=== PATIENT | female | born 1945 | race Caucasian/White ===

== ENCOUNTER 2021-02-11 16:09 | Emergency (ER) | payer MEDICARE, OTHER ==
[~2021-02-11] VITALS: Ht 152.4 cm; Wt 108.9 kg
[2021-02-11 16:10] VITALS: BP 118/71
--- NOTE | 2021-02-11 16:10 | NUR ---
VERONICA ALS TO ER BED 4
--- NOTE | 2021-02-11 16:19 | NUR ---
75 Y/O FEMALE C/O EPIGASTRIC PAIN 10/17 DESCRIBES ACHING NON-RADIATING WITH VAGINAL AND RECTAL BLEED [id number]. PT WAS SEEN FOR SIMILAR SYMPTOMS EARLIER TODAY. BLOOD SUGAR 175. ABDOMEN IS LARGE, NON-TENDER TO PALPATION, BOWEL SOUNDS ACTIVE X4. PMH: CABG, DM, HTN, GI NKA
--- NOTE | 2021-02-11 16:22 | NUR ---
DR. ONEAL AT PT BEDSIDE FOR FURTHER EVALUATION.
--- NOTE | 2021-02-11 16:36 | NUR ---
DR. ONEAL AT PT BEDSIDE FOR IV INSERTION VIA US WITH MARTINEZ DORADO.
[2021-02-11] MEDS ORDERED: PAX10 PO (16:56)
[2021-02-11] MEDS ORDERED: FURO-570 PO (16:56)
[2021-02-11] MEDS ORDERED: OMEP40EC23 PO (16:56)
[2021-02-11] MEDS ORDERED: APIX2.5 PO (16:56)
[2021-02-11] MEDS ORDERED: METF-349 PO (16:56)
[2021-02-11] MEDS ORDERED: METROPOLOL PO (16:56)
[2021-02-11] MEDS ORDERED: NITR0.4T2 SL (16:57)
--- NOTE | 2021-02-11 17:05 | NUR ---
LABS COLLECTED BY DR. ONEAL WALKED TO LAB GAVE TO [employer].
--- NOTE | 2021-02-11 17:05 | NUR ---
PT TAKEN TO CT VIA RSRUTHI.
[2021-02-11 17:12] LABS: BASOPHILS # (AUTO) 0.2 K/uL (0.00-0.22); BASOPHILS % (AUTO) 3.4 % (0.0-2.0); EOSINOPHILS # (AUTO) 0.1 K/uL (0-0.4); EOSINOPHILS % (AUTO) 0.7 % (0.0-4.0); HEMATOCRIT 29.6 % (36-48); HEMOGLOBIN 9.5 g/dL (12.0-16.0); LYMPHOCYTES # (AUTO) 0.9 K/uL (2.5-16.5); LYMPHOCYTES % (AUTO) 12.8 % (20.5-51.1); MEAN CORPUSCULAR HEMOGLOBIN 24 pg (27-31); MEAN CORPUSCULAR HGB CONC 32 g/dL (33-37); MEAN CORPUSCULAR VOLUME 74.4 fL (80-94); MONOCYTES # (AUTO) 0.7 K/uL (0.8-1.0); MONOCYTES % (AUTO) 10.1 % (1.7-9.3); NEUTROPHILS # (AUTO) 5.3 K/uL (1.8-7.7); PLATELET COUNT (AUTO) 552 K/uL (140-450); RED BLOOD CELL COUNT(AUTO) 3.98 MIL/uL (4.20-5.40); RED CELL DISTRIBUTION WIDTH 16.6 % (11.6-13.7); WHITE BLOOD COUNT (AUTO) 7.3 K/uL (4.8-10.8)
--- NOTE | 2021-02-11 17:21 | NUR ---
PT TAKEN TO ER BED 4 VIA AYESHARSRUTHI.
--- NOTE | 2021-02-11 17:22 | NUR ---
PT STATES SHE IS UNABLE TO PROVIDE UA SAMPLE AT THIS TIME, MADE AWARE.
[2021-02-11 17:27] LABS: ALBUMIN 2.5 g/dL (3.4-5.0); ANION GAP 14.4 (8-16); ASPARTATE AMINOTRANSFERASE 32 U/L (15-37); CARBON DIOXIDE 25.2 mmol/L (21-32); CHLORIDE 105 mmol/L (98-107); CREATININE 1.7 mg/dL (0.6-1.3); GLUCOSE 120 mg/dL (74-106); LIPASE 54 U/L (73-393); POTASSIUM 4.6 mmol/L (3.5-5.1); SODIUM SERUM 140 mmol/L (136-145); TOTAL BILIRUBIN 0.4 mg/dL (0.0-1.0); UREA NITROGEN, BLOOD 18 mg/dL (7-18)
--- NOTE | 2021-02-11 17:46 | NUR ---
CHEMICAL LABORATORY ASSISTANT AT PT BEDSIDE.
[2021-02-11 18:17] VITALS: BP 126/89
--- NOTE | 2021-02-11 18:17 | NUR ---
PT RESTING, EYES CLOSED, VISIBLE EQUAL RISE AND FALL OF CHEST, VSS, WILL CONTINUE TO MONITOR.
[2021-02-11 18:25] LABS: PROTHROMBIN TIME 10.9 secs (10.8-13.4)
--- NOTE | 2021-02-11 19:09 | NUR ---
Female Sack Keeper accompanied female patient for Pelvic Exam.
--- NOTE | 2021-02-11 19:31 | NUR ---
GAVE REPORT TO ELMER TURCIOS. TRANSFER OF CARE AT THIS TIME.
[2021-02-11] MEDS ORDERED: KETOROLAC 30 MG/ML VIAL IVP ONE (19:35)
[2021-02-11] MEDS ORDERED: NAPR-54 PO (21:47)
--- NOTE | 2021-02-11 21:50 | NUR ---
STRAIGHT CATHED FOR UA
--- NOTE | 2021-02-11 22:34 | NUR ---
Patient discharged with v/s stable. Written and verbal after care instructions given and explained. Patient alert, oriented and verbalized understanding of instructions. Wheel Chair Assisted with to car. All questions addressed prior to discharge. ID band removed. Patient advised to follow up with PMD. Rx of NAPROSYN given. Patient educated on indication of medication including possible reaction and side effects. Opportunity to ask questions provided and answered.
== END 2021-02-11 22:34 | disposition home or self-care (01) ==
LOC: MED 16:09
DX: N95.0 Postmenopausal bleeding (principal); R10.2 Pelvic and perineal pain; I51.9 Heart disease, unspecified
CPT/HCPCS: 36415; 74176; 76856; 80053; 83690; 85025; 85610; 85730; 86886; 86900; 86901; 93005; 93976; 99285; Q0092

== ENCOUNTER 2021-03-22 12:31 | Inpatient (IN) | payer OTHER, MEDICARE, SELFPAY ==
[~2021-03-22] VITALS: Ht 152.4 cm; Wt 118.4 kg
[~2021-03-22 12:31] MED LIST: APIX2.5 PO; FURO-570 PO; METF-349 PO; METROPOLOL PO; NAPR-54 PO; NITR0.4T2 SL; OMEP40EC23 PO; PAX10 PO
[2021-03-22 12:40] VITALS: BP 108/43
[2021-03-22 14:13] LABS: BASOPHILS # (AUTO) 0.1 K/uL (0.00-0.22); BASOPHILS % (AUTO) 0.7 % (0.0-2.0); EOSINOPHILS % (AUTO) 0.6 % (0.0-4.0); HEMATOCRIT 31.9 % (36-48); HEMOGLOBIN 9.9 g/dL (12.0-16.0); LYMPHOCYTES # (AUTO) 0.7 K/uL (2.5-16.5); LYMPHOCYTES % (AUTO) 9.9 % (20.5-51.1); MEAN CORPUSCULAR HEMOGLOBIN 23 pg (27-31); MEAN CORPUSCULAR HGB CONC 31 g/dL (33-37); MEAN CORPUSCULAR VOLUME 74.5 fL (80-94); MONOCYTES # (AUTO) 0.5 K/uL (0.8-1.0); MONOCYTES % (AUTO) 7.4 % (1.7-9.3); NEUTROPHILS % (AUTO) 81.4 % (42.2-75.2); PLATELET COUNT (AUTO) 492 K/uL (140-450); RED BLOOD CELL COUNT(AUTO) 4.29 MIL/uL (4.20-5.40); RED CELL DISTRIBUTION WIDTH 19.9 % (11.6-13.7); WHITE BLOOD COUNT (AUTO) 7.4 K/uL (4.8-10.8)
[2021-03-22 14:49] LABS: ALBUMIN 2.4 g/dL (3.4-5.0); ANION GAP 15.7 (8-16); ASPARTATE AMINOTRANSFERASE 42 U/L (15-37); CARBON DIOXIDE 22.3 mmol/L (21-32); CHLORIDE 107 mmol/L (98-107); GLUCOSE 112 mg/dL (74-106); LIPASE 54 U/L (73-393); SODIUM SERUM 140 mmol/L (136-145); TOTAL BILIRUBIN 0.6 mg/dL (0.0-1.0); UREA NITROGEN, BLOOD 21 mg/dL (7-18)
[2021-03-22 14:56] LABS: PROTHROMBIN TIME 11.2 secs (10.8-13.4)
[2021-03-22] MEDS ORDERED: MORPHINE SULFATE 4 MG/ML SYR IVP ONE ×2 (15:40→15:55)
[2021-03-22] MEDS ORDERED: FUROSEMIDE 100 MG/10 ML VIAL IVP ONE (15:55)
[2021-03-22] MEDS ORDERED: METF-430 PO (16:29)
[2021-03-22] MEDS ORDERED: FERR325E14 PO (16:29)
[2021-03-22] MEDS ORDERED: DOXY-690 PO (16:29)
[2021-03-22] MEDS ORDERED: FURO-570 PO (16:29)
[2021-03-22] MEDS ORDERED: LOSA100T1 PO (16:29)
[2021-03-22] MEDS ORDERED: DOCU-299 PO (16:29)
[2021-03-22] MEDS ORDERED: METO25TA PO (16:29)
[2021-03-22] MEDS ORDERED: ATOR40TA PO (16:29)
[2021-03-22] MEDS ORDERED: METOPROLOL 25 MG TAB PO ONE (17:10)
[2021-03-22 19:55] LABS: APPEARANCE,URINE CLEAR (CLEAR); BILIRUBIN,URINE NEGATIVE (NEGATIVE); BLOOD, URINE 3+ (NEGATIVE); COLOR,URINE YELLOW (YELLOW); LEUKOCYTE ESTERASE ,URINE 2+ (NEGATIVE); NITRITE, URINE NEGATIVE (NEGATIVE); PH,URINE 5.5 (5.0-9.0); UGLUCOSE NEGATIVE (NEGATIVE)
[2021-03-22 20:09] LABS: RBC,URINE TOO NUMEROUS TO COUN /HPF (0-5); WBC,URINE 60-80 /HPF (0-5)
[2021-03-22 21:30] VITALS: BP 130/84
[2021-03-22] MEDS ORDERED: MORPHINE SULFATE 2 MG/ML SYR IVP PRN ×2 (23:10→23:30)
[2021-03-22] MEDS ORDERED: HYDROcodone/APAP 7.5/325 MG 1 TAB PO PRN (23:30)
[2021-03-22] MEDS ORDERED: ONDANSETRON 4 MG/2 ML VIAL IM/IVP PRN (23:30)
[2021-03-22] MEDS ORDERED: ACETAMINOPHEN 325 MG TAB PO PRN (23:30)
[2021-03-22] MEDS ORDERED: DOCUSATE SODIUM 100 MG GELCAP PO PRN (23:30)
[2021-03-22] MEDS ORDERED: ZOLPIDEM 5 MG TAB PO PRN (23:30)
[2021-03-22] MEDS ORDERED: POTASSIUM CHLORIDE 10 MEQ TABER PO PRN (23:30)
[2021-03-22] MEDS ORDERED: guaiFENesin DM 200/20 MG-10 ML 10 ML UDC PO PRN (23:30)
[2021-03-22] MEDS ORDERED: ALBUTEROL SULFATE/IPRATROPIU 3 ML SOL IH PRN (23:55)
[2021-03-22] MEDS ORDERED: cefTRIAXone 1,000 MG VIAL ONE (23:57)
[2021-03-23] VITALS: BP 134/87
[2021-03-23 00:06] LABS: BARBITURATE, URINE NEGATIVE ng/ml (NEG <=200); BENZODIAZEPINE, URINE NEGATIVE ng/mL (NEG <=200); CANNABINOID, URINE NEGATIVE ng/mL (NEG <=50); COCAINE, URINE NEGATIVE ng/mL (NEG <=300); PHENCYCLIDINE SCREEN,URINE NEGATIVE ng/mL (NEG <=25)
[2021-03-23 00:07] LABS: OPIATE, URINE POSITIVE ng/mL (NEG <=2000)
[2021-03-23 00:11] LABS: CHOL/HDL RATIO 3.5 (1-4.5); FREE T4 (FREE THYROXINE) 1.28 ng/dL (0.76-1.46); PHOSPHORUS 3.1 mg/dL (2.5-4.9); THYROID STIMULATING HORMONE 4.84 uIU/mL (0.34-3.74)
[2021-03-23] MEDS: NACL 0.9% 1,000 ML IV SCH ×2 (00:15→22:25)
[2021-03-23 04:00] VITALS: BP 98/50
[2021-03-23 06:36] LABS: BASOPHILS % (AUTO) 0.7 % (0.0-2.0); EOSINOPHILS # (AUTO) 0.2 K/uL (0-0.4); EOSINOPHILS % (AUTO) 2.6 % (0.0-4.0); HEMATOCRIT 27.1 % (36-48); HEMOGLOBIN 8.7 g/dL (12.0-16.0); LYMPHOCYTES # (AUTO) 1.5 K/uL (2.5-16.5); LYMPHOCYTES % (AUTO) 23.2 % (20.5-51.1); MEAN CORPUSCULAR HEMOGLOBIN 24 pg (27-31); MEAN CORPUSCULAR HGB CONC 32 g/dL (33-37); MEAN CORPUSCULAR VOLUME 73.5 fL (80-94); MONOCYTES # (AUTO) 0.7 K/uL (0.8-1.0); MONOCYTES % (AUTO) 10.8 % (1.7-9.3); NEUTROPHILS # (AUTO) 4.1 K/uL (1.8-7.7); NEUTROPHILS % (AUTO) 62.7 % (42.2-75.2); PLATELET COUNT (AUTO) 435 K/uL (140-450); RED CELL DISTRIBUTION WIDTH 19.3 % (11.6-13.7); WHITE BLOOD COUNT (AUTO) 6.5 K/uL (4.8-10.8)
[2021-03-23 07:31] LABS: ANION GAP 10.7 (8-16); CARBON DIOXIDE 20.8 mmol/L (21-32); CHLORIDE 112 mmol/L (98-107); CREATININE 1.9 mg/dL (0.6-1.3); GLUCOSE 102 mg/dL (74-106); POTASSIUM 4.5 mmol/L (3.5-5.1); SODIUM SERUM 139 mmol/L (136-145); UREA NITROGEN, BLOOD 22 mg/dL (7-18)
[2021-03-23 08:00] VITALS: BP 114/70
[2021-03-23] MEDS: ALBUTEROL SULFATE/IPRATROPIU 3 ML SOL IH SCH ×3 (08:03→19:48)
[2021-03-23] MEDS: PARoxetine 10 MG TAB PO SCH (08:59)
[2021-03-23] MEDS ORDERED: LOSARTAN 50 MG TAB PO SCH (09:00)
[2021-03-23] MEDS ORDERED: FUROSEMIDE 40 MG TAB PO SCH (09:00)
[2021-03-23] MEDS: METOPROLOL 25 MG TAB PO SCH ×2 (09:01→21:00)
[2021-03-23] MEDS: ATORVASTATIN 20 MG TAB PO SCH (09:02)
[2021-03-23] MEDS: PANTOPRAZOLE 40 MG INJ VIAL IVP SCH (09:03)
[2021-03-23 12:00] VITALS: BP 86/44
[2021-03-23 16:00] VITALS: BP 104/49
[2021-03-23] MEDS ORDERED: ASPIRIN 325 MG TABEC PO SCH (18:05)
[2021-03-23] MEDS: FUROSEMIDE 20 MG/2 ML VIAL IVP SCH (18:05)
[2021-03-23] MEDS ORDERED: DIGOXIN 0.25 MG/ML AMP IV SCH (18:12)
[2021-03-23 20:00] VITALS: BP 129/61
[2021-03-24 01:11] VITALS: BP 121/69
[2021-03-24 05:03] VITALS: BP 120/63
[2021-03-24 06:58] LABS: BASOPHILS # (AUTO) 0.1 K/uL (0.00-0.22); BASOPHILS % (AUTO) 1.4 % (0.0-2.0); EOSINOPHILS # (AUTO) 0.3 K/uL (0-0.4); HEMOGLOBIN 8.9 g/dL (12.0-16.0); LYMPHOCYTES # (AUTO) 1.3 K/uL (2.5-16.5); LYMPHOCYTES % (AUTO) 20.4 % (20.5-51.1); MEAN CORPUSCULAR HEMOGLOBIN 23 pg (27-31); MEAN CORPUSCULAR HGB CONC 32 g/dL (33-37); MEAN CORPUSCULAR VOLUME 73.5 fL (80-94); MONOCYTES # (AUTO) 0.7 K/uL (0.8-1.0); MONOCYTES % (AUTO) 10.7 % (1.7-9.3); NEUTROPHILS % (AUTO) 63.5 % (42.2-75.2); PLATELET COUNT (AUTO) 417 K/uL (140-450); RED BLOOD CELL COUNT(AUTO) 3.81 MIL/uL (4.20-5.40); RED CELL DISTRIBUTION WIDTH 19.9 % (11.6-13.7); WHITE BLOOD COUNT (AUTO) 6.4 K/uL (4.8-10.8)
[2021-03-24 07:02] LABS: ANION GAP 15.3 (8-16); CARBON DIOXIDE 21.9 mmol/L (21-32); CHLORIDE 105 mmol/L (98-107); CREATININE 2.3 mg/dL (0.6-1.3); GLUCOSE 101 mg/dL (74-106); POTASSIUM 4.2 mmol/L (3.5-5.1); SODIUM SERUM 138 mmol/L (136-145); UREA NITROGEN, BLOOD 24 mg/dL (7-18)
[2021-03-24 07:09] LABS: T4 (THYROXINE) 8.2 ug/dL (4.5-12.0)
[2021-03-24] MEDS: ALBUTEROL SULFATE/IPRATROPIU 3 ML SOL IH SCH ×2 (07:44→14:19)
[2021-03-24 08:00] VITALS: BP 96/59
[2021-03-24] MEDS: METOPROLOL 25 MG TAB PO SCH ×2 (09:00→21:15)
[2021-03-24] MEDS: FUROSEMIDE 20 MG/2 ML VIAL IVP SCH ×2 (09:00→21:00)
[2021-03-24] MEDS: ECOTRIN 81 MG TABEC PO SCH (09:14)
[2021-03-24] MEDS: ATORVASTATIN 20 MG TAB PO SCH (09:15)
[2021-03-24] MEDS: PANTOPRAZOLE 40 MG INJ VIAL IVP SCH (09:15)
[2021-03-24] MEDS: PARoxetine 10 MG TAB PO SCH (09:16)
[2021-03-24 12:00] VITALS: BP 96/59
[2021-03-24 16:00] VITALS: BP 104/35
[2021-03-24 20:00] VITALS: BP 112/62
[2021-03-24] MEDS: NACL 0.9% 1,000 ML IV SCH (21:15)
[2021-03-25 00:54] VITALS: BP 115/69
[2021-03-25 05:05] VITALS: BP 129/74
[2021-03-25] MEDS: ALBUTEROL SULFATE/IPRATROPIU 3 ML SOL IH SCH ×5 (07:20→19:55)
[2021-03-25 07:39] LABS: ANION GAP 11.1 (8-16); CARBON DIOXIDE 24.8 mmol/L (21-32); CHLORIDE 107 mmol/L (98-107); CREATININE 2.2 mg/dL (0.6-1.3); GLUCOSE 106 mg/dL (74-106); POTASSIUM 4.9 mmol/L (3.5-5.1); SODIUM SERUM 138 mmol/L (136-145); UREA NITROGEN, BLOOD 25 mg/dL (7-18)
[2021-03-25 07:48] LABS: BASOPHILS # (AUTO) 0.1 K/uL (0.00-0.22); BASOPHILS % (AUTO) 0.9 % (0.0-2.0); EOSINOPHILS # (AUTO) 0.4 K/uL (0-0.4); EOSINOPHILS % (AUTO) 6.2 % (0.0-4.0); HEMATOCRIT 26.5 % (36-48); HEMOGLOBIN 8.5 g/dL (12.0-16.0); LYMPHOCYTES # (AUTO) 1.3 K/uL (2.5-16.5); MEAN CORPUSCULAR HEMOGLOBIN 23 pg (27-31); MEAN CORPUSCULAR HGB CONC 32 g/dL (33-37); MEAN CORPUSCULAR VOLUME 73.2 fL (80-94); MONOCYTES # (AUTO) 0.8 K/uL (0.8-1.0); MONOCYTES % (AUTO) 13.9 % (1.7-9.3); NEUTROPHILS # (AUTO) 3.5 K/uL (1.8-7.7); PLATELET COUNT (AUTO) 389 K/uL (140-450); RED BLOOD CELL COUNT(AUTO) 3.62 MIL/uL (4.20-5.40); RED CELL DISTRIBUTION WIDTH 19.8 % (11.6-13.7)
[2021-03-25 08:00] VITALS: BP 104/66
[2021-03-25] MEDS: PANTOPRAZOLE 40 MG INJ VIAL IVP SCH (08:15)
[2021-03-25] MEDS: METOPROLOL 25 MG TAB PO SCH ×2 (08:16→21:00)
[2021-03-25] MEDS: PARoxetine 10 MG TAB PO SCH (08:16)
[2021-03-25] MEDS: ATORVASTATIN 20 MG TAB PO SCH (08:16)
[2021-03-25] MEDS: ECOTRIN 81 MG TABEC PO SCH (08:16)
[2021-03-25] MEDS: FUROSEMIDE 20 MG/2 ML VIAL IVP SCH ×2 (09:00→17:37)
[2021-03-25] MEDS ORDERED: fentaNYL citrate 0.05 MG/ML VIAL ONE (11:16)
[2021-03-25] MEDS ORDERED: NACL 0.9% 1,000 ML IV SCH (11:40)
[2021-03-25] MEDS ORDERED: ONDANSETRON 4 MG/2 ML VIAL IVP PRN (11:40)
[2021-03-25] MEDS ORDERED: PROPOFOL 200 MG/20 ML VIAL IV ONE (11:50)
[2021-03-25] MEDS: BLOOD GLUCOSE MONITORING 1 DEV DEV FS ONE ×2 (11:56→12:05)
[2021-03-25 16:00] VITALS: BP 103/58
[2021-03-25] MEDS ORDERED: BOWEL EVACUANT DRINK 4,000 ML PDS PO SCH (19:00)
[2021-03-25 20:00] VITALS: BP 111/43
[2021-03-26] VITALS: BP 131/52
[2021-03-26 04:00] VITALS: BP 109/46
[2021-03-26 06:58] LABS: ANION GAP 14.7 (8-16); CARBON DIOXIDE 21.5 mmol/L (21-32); CHLORIDE 106 mmol/L (98-107); CREATININE 1.9 mg/dL (0.6-1.3); GLUCOSE 118 mg/dL (74-106); POTASSIUM 4.2 mmol/L (3.5-5.1); SODIUM SERUM 138 mmol/L (136-145); UREA NITROGEN, BLOOD 23 mg/dL (7-18)
[2021-03-26] MEDS: ALBUTEROL SULFATE/IPRATROPIU 3 ML SOL IH SCH ×2 (07:00→13:00)
[2021-03-26 07:03] LABS: BASOPHILS # (AUTO) 0.1 K/uL (0.00-0.22); EOSINOPHILS # (AUTO) 0.2 K/uL (0-0.4); EOSINOPHILS % (AUTO) 2.5 % (0.0-4.0); HEMOGLOBIN 9.2 g/dL (12.0-16.0); LYMPHOCYTES # (AUTO) 1.2 K/uL (2.5-16.5); LYMPHOCYTES % (AUTO) 15.8 % (20.5-51.1); MEAN CORPUSCULAR HEMOGLOBIN 23 pg (27-31); MEAN CORPUSCULAR HGB CONC 32 g/dL (33-37); MEAN CORPUSCULAR VOLUME 73.7 fL (80-94); MONOCYTES # (AUTO) 0.7 K/uL (0.8-1.0); NEUTROPHILS # (AUTO) 5.5 K/uL (1.8-7.7); NEUTROPHILS % (AUTO) 71.7 % (42.2-75.2); PLATELET COUNT (AUTO) 431 K/uL (140-450); RED BLOOD CELL COUNT(AUTO) 3.94 MIL/uL (4.20-5.40); RED CELL DISTRIBUTION WIDTH 20.3 % (11.6-13.7); WHITE BLOOD COUNT (AUTO) 7.7 K/uL (4.8-10.8)
[2021-03-26 08:00] VITALS: BP 122/56
[2021-03-26] MEDS: FUROSEMIDE 20 MG/2 ML VIAL IVP SCH ×2 (09:00→17:00)
[2021-03-26] MEDS: PARoxetine 10 MG TAB PO SCH (09:00)
[2021-03-26] MEDS: METOPROLOL 25 MG TAB PO SCH (09:00)
[2021-03-26] MEDS: ATORVASTATIN 20 MG TAB PO SCH (09:00)
[2021-03-26] MEDS: PANTOPRAZOLE 40 MG INJ VIAL IVP SCH (09:17)
[2021-03-26] MEDS: ECOTRIN 81 MG TABEC PO SCH (09:23)
[2021-03-26 12:00] VITALS: BP 113/62
[2021-03-26] MEDS ORDERED: fentaNYL citrate 0.05 MG/ML VIAL ONE (12:13)
[2021-03-26] MEDS ORDERED: LIDOCAINE 2% 100 MG/5 ML UJET TP ONE (12:13)
[2021-03-26] MEDS ORDERED: MIDAZOLAM 2 MG/2 ML VIAL ONE (12:13)
[2021-03-26] MEDS ORDERED: fentaNYL citrate 0.05 MG/ML VIAL IVP ONE (13:50)
[2021-03-26] MEDS ORDERED: SIMETHICONE 40 MG/0.6 ML ONE (13:55)
[2021-03-26] MEDS ORDERED: CEPH-588 PO (15:12)
[2021-03-26] MEDS ORDERED: ASPI-1856 PO (15:12)
[2021-03-26 16:00] VITALS: BP 129/62
== END 2021-03-26 18:00 | disposition home or self-care (01) | DRG 720 ==
LOC: MED 12:31 → MTU 20:01
PROVIDERS: ADMIT Family Medicine; ATTEND Family Medicine
PROC: 0UBC7ZX Excision of Cervix, Via Natural or Artificial Opening, Diagnostic (ICD-10-PCS; 2021-03-25)
PROC: 0DBK8ZZ Excision of Ascending Colon, Via Natural or Artificial Opening Endoscopic (ICD-10-PCS; principal; 2021-03-26 12:10)
DX: A41.9 Sepsis, unspecified organism (principal); N17.0 Acute kidney failure with tubular necrosis; I50.43 Acute on chronic combined systolic (congestive) and diastolic (congestive) heart failure; E43 Unspecified severe protein-calorie malnutrition; R18.8 Other ascites; K74.60 Unspecified cirrhosis of liver; Z68.43 Body mass index [BMI] 50.0-59.9, adult; D63.8 Anemia in other chronic diseases classified elsewhere; E11.9 Type 2 diabetes mellitus without complications; I48.91 Unspecified atrial fibrillation; E03.8 Other specified hypothyroidism; E78.2 Mixed hyperlipidemia; M79.3 Panniculitis, unspecified; N39.0 Urinary tract infection, site not specified; M47.816 Spondylosis without myelopathy or radiculopathy, lumbar region; N95.0 Postmenopausal bleeding; B96.20 Unspecified Escherichia coli [E. coli] as the cause of diseases classified elsewhere; E66.01 Morbid (severe) obesity due to excess calories; K57.30 Diverticulosis of large intestine without perforation or abscess without bleeding; D12.2 Benign neoplasm of ascending colon; Z20.822 Contact with and (suspected) exposure to COVID-19; N88.8 Other specified noninflammatory disorders of cervix uteri; F32.A Depression, unspecified; I25.10 Atherosclerotic heart disease of native coronary artery without angina pectoris; I25.5 Ischemic cardiomyopathy; I11.0 Hypertensive heart disease with heart failure; Z95.1 Presence of aortocoronary bypass graft; Z79.899 Other long term (current) drug therapy; Z90.49 Acquired absence of other specified parts of digestive tract
CPT/HCPCS: 36415; 71045; 74022; 76700; 76830; 80048; 80053; 80305; 81001; 82140; 82150; 83036; 83690; 83735; 83880; 84100; 84436; 84439; 84443; 84479; 84484; 85025; 85610; 85730; 86304; 87070; 87075; 87081; 87086; 87205; 87210; 87804; 88305; 93005; 94640; 96374; 96375; 97110; 97112; 97116; 97163-GP; 97530; 99285; C9113; J0696; J1160; J1940; J2250; J2270; J2704; J3010; J7030; J7060; Q0092